=== PATIENT | male | born 1990 | race Hispanic/Latino ===

== ENCOUNTER 2018-10-03 00:44 | Emergency (ER) | payer SELFPAY ==
[2018-10-03] MEDS ORDERED: ONDANSETRON 4 MG/2 ML VIAL ONE (01:34)
[2018-10-03 01:40] LABS: Basophils % 0.2 % (0-1.3); Hematocrit 51.9 % (39.6-49.0); MPV 7.9 fL (7.6-11.3); Monocytes % 2.6 % (3.3-12.3)
[2018-10-03 01:52] LABS: Bilirubin Direct 0.2 mg/dL (0-0.2); Bilirubin Total 0.8 mg/dL (0.2-1.0); Potassium 4.6 mmol/L (3.5-5.1); Protein, Total 11.5 g/dL (6.4-8.2)
[2018-10-03] MEDS ORDERED: MEPERIDINE HCL 50 MG/ML AMP ONE (01:58)
[2018-10-03] MEDS ORDERED: NA CHLORIDE 0.9% 2,000 ML ONE (01:58)
[2018-10-03 02:13] LABS: Blood Morphology Comment NOT SEEN (NOT SEEN); Platelet Estimate ADEQ
[2018-10-03 05:57] LABS: Absolute Lymphocytes (CBC) 1.4 K/uL (0.7-4.9); Basophils % 0.3 % (0-1.3); Hematocrit 43.4 % (39.6-49.0); Lymphocytes % 12.5 % (15.3-44.8); MPV 7.4 fL (7.6-11.3); Monocytes % 4.2 % (3.3-12.3); RBC Red Blood Cell Count 4.65 M/uL (4.33-5.43)
[2018-10-03 06:12] LABS: Potassium 4.6 mmol/L (3.5-5.1)
[2018-10-03] MEDS ORDERED: NA CHLORIDE 0.9% 1,000 ML ONE (07:16)
[2018-10-03 08:06] LABS: Urine Blood TRACE (NEG); Urine Glucose NEGATIVE (NEG); Urine Protein 2+ (NEG); Urine Specific Gravity >1.030 (1.005-1.030)
--- NOTE | 2018-10-03 08:46 | RAD REPORT ---
EXAM DESCRIPTION: US - Abdomen Exam Limited - 10/03/2018 8:34 am CLINICAL HISTORY: Abdominal pain. COMPARISON: None. FINDINGS: The gallbladder wall is not thickened. A gallstone is not seen. The biliary tree is normal caliber. IMPRESSION: Unremarkable gallbladder ultrasound.
[2018-10-03 09:46] LABS: Potassium 4.2 mmol/L (3.5-5.1)
--- NOTE | 2018-10-03 12:48 | EDPHYS ---
Physician Documentation [facility] Name: Anibal Babin Age: 28 yrs Sex: Male : 1990 Arrival Date: 10/03/2018 Time: 00:52 Bed 20 Private MD: ED Physician Arslan Godinez HPI: 10/03 01:25 This 28 yrs old Male presents to ER via Ambulatory with complaints of Vomiting.pkl 01:25 The patient presents with abdominal pain in the upper abdomen. Onset: The pkl symptoms/episode began/occurred today. The symptoms do not radiate. Associated signs and symptoms: Pertinent positives: nausea and vomiting. The patient has experienced a previous episode, approximately 1 years ago. Historical: - Allergies: 01:01 No Known Allergies; tl2 - Home Meds: 01:01 None [Active]; tl2 - PMHx: 01:01 None; tl2 - PSHx: 01:01 None; tl2 - Immunization history:: Adult Immunizations up to date. - Social history:: Smoking status: Patient/guardian denies using tobacco. - Ebola Screening: : No symptoms or risks identified at this time. ROS: 01:25 Eyes: Negative for injury, pain, redness, and discharge, ENT: Negative for injury, pkl pain, and discharge, Neck: Negative for injury, pain, and swelling, Cardiovascular: Negative for chest pain, palpitations, and edema, Respiratory: Negative for shortness of breath, cough, wheezing, and pleuritic chest pain. 01:25 Abdomen/GI: Positive for abdominal pain, nausea and vomiting, of the right upper quadrant and left upper quadrant. 01:25 Back: Negative for acute changes. 01:25 : Negative for urinary symptoms. 01:25 MS/extremity: Negative for acute changes. 01:25 Skin: Negative for rash. 01:25 Neuro: Negative for altered mental status. Exam: 01:25 Head/Face: Normocephalic, atraumatic. Eyes: Pupils equal round and reactive to light, pkl extra-ocular motions intact. Lids and lashes normal. Conjunctiva and sclera are non-icteric and not injected. Cornea within normal limits. Periorbital areas with no swelling, redness, or edema. ENT: Nares patent. No nasal discharge, no septal abnormalities noted. Tympanic membranes are normal and external auditory canals are clear. Oropharynx with no redness, swelling, or masses, exudates, or evidence of obstruction, uvula midline. Mucous membranes moist. Neck: Trachea midline, no thyromegaly or masses palpated, and no cervical lymphadenopathy. Supple, full range of motion without nuchal rigidity, or vertebral point tenderness. No Meningismus. Chest/axilla: Normal chest wall appearance and motion. Nontender with no deformity. No lesions are appreciated. Cardiovascular: Regular rate and rhythm with a normal S1 and S2. No gallops, murmurs, or rubs. Normal PMI, no JVD. No pulse deficits. Respiratory: Lungs have equal breath sounds bilaterally, clear to auscultation and percussion. No rales, rhonchi or wheezes noted. No increased work of breathing, no retractions or nasal flaring. 01:25 Abdomen/GI: Bowel sounds: normal, Palpation: soft, moderate abdominal tenderness, in the right upper quadrant and left upper quadrant. 01:25 Back: Exam negative for acute changes. 01:25 : Exam negative for acute changes. 01:25 Musculoskeletal/extremity: Exam is negative for acute changes. 01:25 Skin: Exam negative for rash. 01:25 Neuro: Orientation: is normal, Mentation: is normal, Cranial nerves: grossly normal, Motor: is normal. 02:33 Abdomen/GI: Rectal exam: Stool: guaiac negative, the exam is chaperoned by the nurse. [facility] Vital Signs: 01:01 BP 159 / 121; Pulse 88; Resp 18; Temp 98.5(TE); Pulse Ox 98% on R/A; Weight 68.04 kg; tl2 Height 5 ft. 5 in. (165.10 cm); Pain 4/10; 02:10 BP 115 / 70; Pulse 80; Resp 18 S; Pulse Ox 96% on R/A; cc3 02:15 BP 118 / 72; Pulse 74; Resp 18 S; Pulse Ox 98% on R/A; cc3 03:41 BP 119 / 73; Pulse 61; Resp 18 S; Pulse Ox 97% on R/A; cc3 04:45 BP 111 / 72; Pulse 59; Resp 16 S; Pulse Ox 97% on R/A; cc3 05:31 BP 107 / 63; Pulse 60; Resp 16 S; Pulse Ox 98% on R/A; cc3 06:09 BP 103 / 68; Pulse 58; Resp 16 S; Pulse Ox 98% on R/A; cc3 07:19 BP 120 / 69; Pulse 55; Resp 17; Pulse Ox 97% on R/A; tw2 08:20 BP 111 / 64; Pulse 58; Resp 17; Pulse Ox 99% on R/A; tw2 09:21 BP 118 / 68; Pulse 53; Resp 17; Pulse Ox 99% on R/A; tw2 10:48 BP 113 / 63; Pulse 64; Resp 17; Pulse Ox 98% on R/A; aj 11:30 BP 104 / 58; Pulse 54; Resp 17; Pulse Ox 97% on R/A; tw2 12:30 BP 105 / 69; Pulse 53; Resp 17; Pulse Ox 98% on R/A; tw2 13:25 BP 133 / 78; Pulse 53; Resp 17; Pulse Ox 99% on R/A; tw2 01:01 Body Mass Index 24.96 (68.04 kg, 165.10 cm) tl2 MDM: 01:15 Patient medically screened. pkl 12:42 Differential diagnosis: gastritis, gastroesophageal reflux disease, non-specific abd rn pain, pancreatitis, Peptic Ulcer Disease, cholecystitis. Data reviewed: vital signs, nurses notes, lab test result(s), radiologic studies, CT scan, ultrasound, and as a result, I will discharge patient. Counseling: I had a detailed discussion with the patient and/or guardian regarding: the historical points, exam findings, and any diagnostic results supporting the discharge/admit diagnosis, lab results, radiology results, the need for outpatient follow up, to return to the emergency department if symptoms worsen or persist or if there are any questions or concerns that arise at home. Response to treatment: the patient's symptoms have resolved after treatment, and as a result, I will. Special discussion: Based on the patient's Hx, exam, and Dx evaluation, there is no indication for emergent surgery or inpatient Tx. It is understood by the patient/guardian that if the Sx's persist or worsen they need to return immediately for re-evaluation. I discussed with the patient/guardian in detail that at this point there is no indication for admission to the hospital. It is understood, however, that if the symptoms persist or worsen the patient needs to return immediately for re-evaluation. ED course: Pt signed out to me by Dr Godinez with improving BMP and renal function, plan was to repeat BMP after fluids and if improves to dc home. I evaluated patient, no pain, no longer vomiting, likely dehydration from vomiting > 24 hours. Will dc home as feels much better with prn nausea meds and instruction for rehydration.. 10/03 01:24 Order name: Basic Metabolic Panel; Complete Time: 02:06 pkl 10/03 01:24 Order name: CBC with Diff; Complete Time: 02:15 pkl 10/03 01:24 Order name: Creatinine for Radiology; Complete Time: 02:06 pkl 10/03 01:24 Order name: Hepatic Function; Complete Time: 02:06 pkl 10/03 01:24 Order name: Lipase; Complete Time: 02:06 pkl 10/03 01:44 Order name: Manual Differential; Complete Time: 02:15 EDMS 10/03 03:49 Order name: Abdomen EDMS 10/03 05:07 Order name: CBC with Diff; Complete Time: 06:49 pkl 10/03 05:07 Order name: Chem 7; Complete Time: 06:49 pkl 10/03 06:57 Order name: Urine Dipstick--Ancillary (enter results); Complete Time: 12:00 mw2 10/03 08:02 Order name: Chem 7; Complete Time: 12:00 tw2 10/03 08:10 Order name: Abdomen Limited US; Complete Time: 12:00 bd 10/03 01:24 Order name: IV Saline Lock; Complete Time: 01:25 pkl 10/03 01:24 Order name: Labs collected and sent; Complete Time: 01:40 pkl Administered Medications: 01:19 CANCELLED (Duplicate Order): Zofran 4 mg IVP once; over 2 minutes cc3 01:20 Drug: Zofran 4 mg Route: IVP; Site: left antecubital; cc3 02:00 Follow up: Response: No adverse reaction; Nausea is decreased; Vomiting decreased cc3 01:40 Drug: NS 0.9% 1000 ml Route: IV; Rate: 1000 ml; Site: left antecubital; cc3 02:38 Follow up: Response: No adverse reaction; IV Status: Completed infusion; IV Intake: cc3 1000ml 01:40 Drug: Demerol 50 mg Route: IVP; Site: left antecubital; cc3 02:15 Follow up: Response: No adverse reaction; Pain is decreased cc3 02:38 Drug: NS 0.9% 1000 ml Route: IV; Rate: 125 ml/hr; Site: left antecubital; cc3 05:05 Follow up: Response: No adverse reaction; Dr. Godinez ordered to give remaining fluid as cc3 bolus now 05:50 Follow up: Response: No adverse reaction; IV Status: Completed infusion; IV Intake: cc3 1000ml 07:07 Drug: NS 0.9% 1000 ml Route: IV; Rate: 1000 ml; Site: left antecubital; tw2 08:02 Follow up: Response: No adverse reaction; IV Status: Completed infusion; IV Intake: tw2 1000ml Disposition: 10/03/18 12:46 Discharged to Home. Impression: Vomiting, unspecified, Dehydration. - Condition is Stable. - Discharge Instructions: Dehydration, Adult, Nausea and Vomiting, Adult. - Prescriptions for Zofran ODT 4 mg Oral tablet,disintegrating - place 1 tablet by TRANSLINGUAL route every 8 hours As needed; 20 tablet. - Medication Reconciliation Form, Thank You Letter, Antibiotic Education, Prescription Opioid Use, Work release form form. - Follow up: Private Physician; When: As needed; Reason: Recheck today's complaints, Re-evaluation by your physician. - Problem is new. - Symptoms have improved. Signatures: Dispatcher [employer] EDLA Arslan Godinez MD MD pkl Nieto, Roman, MD MD rn Wise, Tara, RN RN tw2 Ximena Medina RN RN tl2 Nadine Campbell cc3 Corrections: (The following items were deleted from the chart) 01:19 01:16 Zofran 4 mg IVP once; over 2 minutes ordered. cc3 cc3 01:19 01:18 Zofran 4 mg IVP once; over 2 minutes ordered. cc3 cc3 03:49 02:12 Abdomen Pelvis W Con+CT.RAD.BRZ ordered. [facility] EDLA 13:26 12:46 10/03/2018 12:46 Discharged to Home. Impression: Vomiting, unspecified; tw2 Dehydration. Condition is Stable. Forms are Work release form, Medication Reconciliation Form, Thank You Letter, Antibiotic Education, Prescription Opioid Use. Follow up: Private Physician; When: As needed; Reason: Recheck today's complaints, Re-evaluation by your physician. Problem is new. Symptoms have improved. rn
--- NOTE | 2018-10-03 12:48 | ER ---
Nurse's Notes [facility] Name: Anibal Babin Age: 28 yrs Sex: Male : 1990 Arrival Date: 10/03/2018 Time: 00:52 Bed 20 Private MD: Diagnosis: Vomiting, unspecified;Dehydration Presentation: 10/03 01:01 Presenting complaint: Patient states: lower abdominal pain and vomiting since 1200 tl2 yesterday. Transition of care: patient was not received from another setting of care. Onset of symptoms was October 02, 2018 at 12:00. Risk Assessment: Do you want to hurt yourself or someone else? Patient reports no desire to harm self or others. Initial Sepsis Screen: Does the patient meet any 2 criteria? No. Patient's initial sepsis screen is negative. Does the patient have a suspected source of infection? No. Patient's initial sepsis screen is negative. Care prior to arrival: None. 01:01 Method Of Arrival: Ambulatory tl2 01:01 Acuity: [place] 3 tl2 Triage Assessment: 01:03 General: Appears in no apparent distress. uncomfortable, Behavior is calm, cooperative, cc3 appropriate for age. Pain: Complains of pain in left upper quadrant and right upper quadrant, lower abdomen. GI: Reports lower abdominal pain, upper abdominal pain, nausea, vomiting, since 1200H yesterday. Historical: - Allergies: 01: No Known Allergies; tl2 - Home Meds: 01: None [Active]; tl2 - PMHx: 01: None; tl2 - PSHx: 01:01 None; tl2 - Immunization history:: Adult Immunizations up to date. - Social history:: Smoking status: Patient/guardian denies using tobacco. - Ebola Screening: : No symptoms or risks identified at this time. Screenin:02 Abuse screen: Denies threats or abuse. Nutritional screening: No deficits noted. tl2 Tuberculosis screening: No symptoms or risk factors identified. Fall Risk None identified. Assessment: 01:03 General: Appears in no apparent distress. uncomfortable, Behavior is calm, cooperative, cc3 appropriate for age. Pain: Complains of pain in left upper quadrant and right upper quadrant, lower abdomen Quality of pain is described as aching, Pain began 1 day ago. Neuro: Level of Consciousness is awake, alert, obeys commands, Oriented to person, place, time, situation, Appropriate for age. Cardiovascular: Denies chest pain, Capillary refill < 3 seconds Patient's skin is warm and dry. Respiratory: Airway is patent Respiratory effort is even, unlabored, Respiratory pattern is regular, symmetrical. GI: Abdomen is round non-distended. : No signs and/or symptoms were reported regarding the genitourinary system. EENT: No signs and/or symptoms were reported regarding the EENT system. Derm: Skin is intact, is healthy with good turgor, Skin is pink, warm \T\ dry. normal. Musculoskeletal: Circulation, motion, and sensation intact. Range of motion: intact in all extremities. 01:10 Reassessment: Patient vomited coffee-ground vomitus, informed COMPUTER SYSTEMS AUDITOR Soo to see the cc3 patient and he ordered to give Zofran IV and carried out. 02:33 Reassessment: Patient appears in no apparent distress at this time. Patient and/or cc3 family updated on plan of care and expected duration. Pain level reassessed. Patient is alert, oriented x 3, equal unlabored respirations, skin warm/dry/pink. Dr. Godinez did anal exam and tested negative for occult. 02:51 Reassessment: Patient just finished his oral contrast, process technician informed. cc3 03:39 Reassessment: Patient appears in no apparent distress at this time. Patient and/or cc3 family updated on plan of care and expected duration. Pain level reassessed. Patient is alert, oriented x 3, equal unlabored respirations, skin warm/dry/pink. Patient came back from CT scan department, awaiting result. 04:30 Reassessment: Patient appears in no apparent distress at this time. Patient and/or cc3 family updated on plan of care and expected duration. Pain level reassessed. Patient is alert, oriented x 3, equal unlabored respirations, skin warm/dry/pink. 05:05 Reassessment: Patient appears in no apparent distress at this time. Patient and/or cc3 family updated on plan of care and expected duration. Pain level reassessed. Patient is alert, oriented x 3, equal unlabored respirations, skin warm/dry/pink. Dr. Godinez ordered to give bolus the remaining IVF of NS 1L running at 125 mL/hr then to repeat CBC and basic after fluid bolus completion. Patient denies pain at this time. Patient states feeling better. Patient states symptoms have improved. 05:50 Reassessment: Patient appears in no apparent distress at this time. Patient and/or cc3 family updated on plan of care and expected duration. Pain level reassessed. Patient is alert, oriented x 3, equal unlabored respirations, skin warm/dry/pink. Repeat CBC and Chem 7 taken and sent to laboratory as ordered. Patient denies pain at this time. Patient states feeling better. Patient states symptoms have improved. 06:10 Reassessment: Patient appears in no apparent distress at this time. Patient and/or cc3 family updated on plan of care and expected duration. Pain level reassessed. Patient is alert, oriented x 3, equal unlabored respirations, skin warm/dry/pink. Patient denies pain at this time. Patient states feeling better. Patient states symptoms have improved. 07:20 Reassessment: Patient appears in no apparent distress at this time. Patient and/or tw2 family updated on plan of care and expected duration. Pain level reassessed. Patient is alert, oriented x 3, equal unlabored respirations, skin warm/dry/pink. pt aware of completion of IV fluids and lab draw after completion of fluids Patient states feeling better. Patient states symptoms have improved. 11:30 Reassessment: Patient appears in no apparent distress at this time. Patient and/or tw2 family updated on plan of care and expected duration. Pain level reassessed. Patient is alert, oriented x 3, equal unlabored respirations, skin warm/dry/pink. 12:30 Reassessment: Patient appears in no apparent distress at this time. Patient and/or tw2 family updated on plan of care and expected duration. Pain level reassessed. Patient is alert, oriented x 3, equal unlabored respirations, skin warm/dry/pink. 13:25 Reassessment: Patient appears in no apparent distress at this time. Patient and/or tw2 family updated on plan of care and expected duration. Pain level reassessed. Patient is alert, oriented x 3, equal unlabored respirations, skin warm/dry/pink. Vital Signs: 01:01 BP 159 / 121; Pulse 88; Resp 18; Temp 98.5(TE); Pulse Ox 98% on R/A; Weight 68.04 kg; tl2 Height 5 ft. 5 in. (165.10 cm); Pain 4/10; 02:10 BP 115 / 70; Pulse 80; Resp 18 S; Pulse Ox 96% on R/A; cc3 02:15 BP 118 / 72; Pulse 74; Resp 18 S; Pulse Ox 98% on R/A; cc3 03:41 BP 119 / 73; Pulse 61; Resp 18 S; Pulse Ox 97% on R/A; cc3 04:45 BP 111 / 72; Pulse 59; Resp 16 S; Pulse Ox 97% on R/A; cc3 05:31 BP 107 / 63; Pulse 60; Resp 16 S; Pulse Ox 98% on R/A; cc3 06:09 BP 103 / 68; Pulse 58; Resp 16 S; Pulse Ox 98% on R/A; cc3 07:19 BP 120 / 69; Pulse 55; Resp 17; Pulse Ox 97% on R/A; tw2 08:20 BP 111 / 64; Pulse 58; Resp 17; Pulse Ox 99% on R/A; tw2 09:21 BP 118 / 68; Pulse 53; Resp 17; Pulse Ox 99% on R/A; tw2 10:48 BP 113 / 63; Pulse 64; Resp 17; Pulse Ox 98% on R/A; aj 11:30 BP 104 / 58; Pulse 54; Resp 17; Pulse Ox 97% on R/A; tw2 12:30 BP 105 / 69; Pulse 53; Resp 17; Pulse Ox 98% on R/A; tw2 13:25 BP 133 / 78; Pulse 53; Resp 17; Pulse Ox 99% on R/A; tw2 01:01 Body Mass Index 24.96 (68.04 kg, 165.10 cm) tl2 ED Course: 00:52 Patient arrived in ED. ds1 01:01 Triage completed. tl2 01:01 Arm band placed on right wrist. tl2 01:02 Patient has correct armband on for positive identification. Bed in low position. Call tl2 light in reach. Side rails up X 1. 01:03 Nadine Campbell is Primary Nurse. cc3 01:10 Inserted saline lock: 20 gauge in left antecubital area, using aseptic technique. Blood cc3 collected. 01:15 Arslan Godinez MD is Attending Physician. pkl 03:46 CT completed. Patient tolerated procedure well. Patient moved to CT via stretcher. eh Patient moved back from CT. 03:49 Abdomen In Process Unspecified. EDMS 07:00 Report given to RAINA Sin. cc3 07:06 January Mcmanus RN is Primary Nurse. tw2 08:27 Chem 7 Sent. tw2 08:34 Abdomen Limited US In Process Unspecified. EDMS 13:03 Awaiting: Rx to be signed by physician PRIOR to discharge. tw2 13:25 No provider procedures requiring assistance completed. IV discontinued, intact, tw2 bleeding controlled, No redness/swelling at site. Pressure dressing applied. Administered Medications: 01:19 CANCELLED (Duplicate Order): Zofran 4 mg IVP once; over 2 minutes cc3 01:20 Drug: Zofran 4 mg Route: IVP; Site: left antecubital; cc3 02:00 Follow up: Response: No adverse reaction; Nausea is decreased; Vomiting decreased cc3 01:40 Drug: NS 0.9% 1000 ml Route: IV; Rate: 1000 ml; Site: left antecubital; cc3 02:38 Follow up: Response: No adverse reaction; IV Status: Completed infusion; IV Intake: cc3 1000ml 01:40 Drug: Demerol 50 mg Route: IVP; Site: left antecubital; cc3 02:15 Follow up: Response: No adverse reaction; Pain is decreased cc3 02:38 Drug: NS 0.9% 1000 ml Route: IV; Rate: 125 ml/hr; Site: left antecubital; cc3 05:05 Follow up: Response: No adverse reaction; Dr. Godinez ordered to give remaining fluid as cc3 bolus now 05:50 Follow up: Response: No adverse reaction; IV Status: Completed infusion; IV Intake: cc3 1000ml 07:07 Drug: NS 0.9% 1000 ml Route: IV; Rate: 1000 ml; Site: left antecubital; tw2 08:02 Follow up: Response: No adverse reaction; IV Status: Completed infusion; IV Intake: tw2 1000ml Intake: 02:38 IV: 1000ml; Total: 1000ml. cc3 05:50 IV: 1000ml; Total: 2000ml. cc3 08:02 IV: 1000ml; Total: 3000ml. tw2 Outcome: 12:46 Discharge ordered by . raina 13:25 Discharged to home ambulatory. tw2 13:25 Condition: stable 13:25 Discharge instructions given to patient, Instructed on discharge instructions, follow up and referral plans. medication usage, Demonstrated understanding of instructions, follow-up care, medications, Prescriptions given X 1. 13:26 Instructed on need to go to PCP or return here for repeat blood work in 7 days, pt tw2 verbalized understanding. 13:26 Patient left the ED. tw2 Signatures: Dispatcher [employer] Sharda Sharpe, RN RN Arslan Trujillo MD MD pkl Hagler, Ervin eh Sanford, Demi ds1 Nito Pimentel MD MD rn Wise, Tara, RN RN tw2 Ximena Medina RN RN 2 Nadine Campbell 3
--- NOTE | 2018-10-04 13:07 | RAD REPORT ---
EXAM DESCRIPTION: CT - Abdomen Pelvis Wo Contrast - 10/03/2018 6:02 am CLINICAL HISTORY: The patient is 28 years old and is Male; ABD PAIN TECHNIQUE: Axial computed tomography images of the abdomen and pelvis without intravenous contrast. Sagittal and coronal reformatted images were created and reviewed. This CT exam was performed usi ng one or more of the following dose reduction techniques: automated exposure control, adjustment o f the mA and/or kV according to patient size, and/or use of iterative reconstruction technique. COMPARISON: No relevant prior studies available. FINDINGS: LUNG BASES: Unremarkable. No mass. No consolidation. ABDOMEN: LIVER: Homogeneous without focal mass. GALLBLADDER AND BILE DUCTS: No calcified stones. No ductal dilation. PANCREAS: Unremarkable. No ductal dilation. SPLEEN: Unremarkable. ADRENALS: Unremarkable. No mass. KIDNEYS AND URETERS: No obstructing stones. No hydronephrosis. STOMACH AND BOWEL: The stomach is distended with oral contrast. Oral contrast is noted throughou t the small bowel which is normal in caliber. Contrast and stool are present throughout the colon. Th ere is no mucosal thickening or evidence of bowel obstruction. PELVIS: APPENDIX: The appendix is normal in caliber without surrounding inflammation. BLADDER: The bladder is moderately distended. No stones. REPRODUCTIVE: Unremarkable as visualized. ABDOMEN and PELVIS: INTRAPERITONEAL SPACE: Unremarkable. No free air. No significant fluid collection. BONES/JOINTS: No acute fracture. SOFT TISSUES: The soft tissues are normal. VASCULATURE: Unremarkable. No abdominal aortic aneurysm. LYMPH NODES: Unremarkable. No enlarged lymph nodes. IMPRESSION: No acute findings on this noncontrasted CT of the abdomen and pelvis to explain the juan jose ent's symptoms. Electronically signed by: Aissatou Paredes MD 10/03/2018 4:29 AM CDT Due to temporary technical issues with the PACS/Fluency reporting system, reports are being signed by the in house radiologist as a courtesy to ensure prompt reporting. The interpreting radiologist is tyler garcia responsible for the content of the report.
== END 2018-10-03 13:26 | disposition home or self-care (01) ==
LOC: ER 00:44
DX: E86.0 Dehydration (principal)
CPT/HCPCS: 36415; 74176; 76705; 80048; 80076; 81003; 83690; 85025; 96361; 96374; 96375; 99284; J2175; J2405; J7030